=== PATIENT | female | born 1960 | race Caucasian/White ===

== ENCOUNTER 2018-09-04 07:21 | Day surgery (SDC) | payer OTHER ==
[2018-08-27 12:57] LABS: BASOPHILS % (AUTO) 0.3 % (0-1); EOSINOPHILS # (AUTO) 0.2 X10'3 (0-0.9); EOSINOPHILS % (AUTO) 2.5 % (0-6); LYMPHOCYTES % (AUTO) 30.1 % (21-51); MEAN CORPUSCULAR HEMOGLOBIN 29.7 PG (27.0-31.0); MEAN CORPUSCULAR HGB CONC 32.7 % (33.0-36.5); MEAN CORPUSCULAR VOLUME 90.8 FL (78-98); MEAN PLATELET VOLUME 7.8 FL (7.4-10.4); MONOCYTES # (AUTO) 0.4 X10'3 (0-0.9); MONOCYTES % (AUTO) 6.3 % (2-12); NEUTROPHILS # (AUTO) 4.2 X10'3 (1.8-7.7); NEUTROPHILS % (AUTO) 60.8 % (42-75); PRE OP HEMATOCRIT 43.5 % (35.0-45.0); PRE OP HEMOGLOBIN 14.2 g/dL (12.0-16.0); PRE OP PLATELET COUNT 319 X10'3 (140-440); RED BLOOD COUNT 4.79 X10'6 (4.20-5.60); RED CELL DISTRIBUTION WIDTH 13.2 % (11.5-14.5)
[2018-08-27 13:14] LABS: ALBUMIN 4.1 G/DL (3.4-5.0); ALBUMIN/GLOBULIN RATIO 1.1 (1.1-1.5); ALKALINE PHOSPHATASE 100 IU/L (46-116); BLOOD UREA NITROGEN 17 MG/DL (7-18); BUN/CREATININE RATIO 20.5 (6.6-38.0); CALCIUM 9.5 MG/DL (8.5-10.1); CHLORIDE 101 MMOL/L (99-107); CREATININE 0.83 MG/DL (0.40-0.90); PRE OP ALT 40 U/L (30-65); PRE OP ANION GAP 12 (8-16); PRE OP AST 21 U/L (10-37); PRE OP BILIRUB, TOTAL 0.4 MG/DL (0.0-1.0); PRE OP GLUCOSE 94 MG/DL (70-104); PRE OP POTASSIUM 4.2 MMOL/L (3.4-5.1); PRE OP SODIUM 140 MMOL/L (135-145); TOTAL CARBON DIOXIDE 26.6 MMOL/L (24-32); TOTAL PROTEIN 7.7 G/DL (6.4-8.2); eGFR 71 ML/MIN
[~2018-09-04] VITALS: Ht 167.6 cm; Wt 79.4 kg
[~2018-09-04 07:21] MED LIST: CRAN1TAB3 PO; FISH12002 PO; MAGN1TAB PO; MELA3TAB PO; MULT1TAB74 PO; NYQUIL PO; PANT-47 PO; VALA10002 PO; [UNRECOGNIZED DRUG - OTHER] PO; cefazolin/dext.iso 2gm/100 ML IV ONE; famotidine 20mg tablet PO ONE; ringers solution, lacted 1,000 ML IV SCH
[2018-09-04] MEDS ORDERED: LIDOcaine 0.5% (5mg/ml) 50ml vial ONE (08:25)
[2018-09-04] MEDS ORDERED: ringers solution, lacted 1,000 ML IV SCH (08:51)
[2018-09-04] MEDS ORDERED: proCHLORperazine 10 MG/2 ml inj IV PRN (08:55)
[2018-09-04] MEDS ORDERED: ondansetron/PF 4mg/2ml inj IV PRN (08:55)
[2018-09-04] MEDS ORDERED: morphine 4 MG/ML inj SYRINge IV PRN ×2 (08:55)
[2018-09-04] MEDS ORDERED: meperidine/PF 25mg/ml syringe IV PRN ×3 (08:55)
[2018-09-04] MEDS ORDERED: fentaNYL/PF 50MCG/1 ML 2ML syringe ONE (09:32)
[2018-09-04] MEDS ORDERED: midazolam 2 mg/2 ml injection ONE ×2 (09:33→10:50)
[2018-09-04 10:00] VITALS: BP 124/83
[2018-09-04] MEDS ORDERED: BUPIVAcaine/PF 2.5mg/ml (0.25%) 10ml vial ONE (10:09)
[2018-09-04] MEDS ORDERED: hydrALAZINE 20mg/ml inj. IV ONE (11:05)
[2018-09-04] MEDS ORDERED: propofol inj 20 ML IV ONE (11:05)
[2018-09-04 11:16] VITALS: BP 138/83
--- NOTE | 2018-09-04 11:16 | NUR ---
Received from OR via [facility] , accompanied by Anesthesiologist CRISSY and report given by Anesthesiolgist. PATIENT WITH 20G PIV IN LEFT AC RUNNING LR AT 100. MOSESIES ARIANA AT THIS TIME.RIGHT WRIST AND ELBOW IN BILLY BANDAGES THAT ARE CDI . Addendum: 09/04/18 at 1133 by Leonel Ayala RN, RN Amended: Links added.
[2018-09-04 11:26] VITALS: BP 131/80
[2018-09-04 11:36] VITALS: BP 138/77
--- NOTE | 2018-09-04 11:46 | NUR ---
ALL DC CRITERIA HAS BEEN MET. IV OUT WITHOUT ISSUE OR COMPLICATION. DENIES PAIN. SPOUSE PRESENT FOR DC PAPERWORK. ALL QUESTIONS ANSWERED, SPOUSE ASSISTED PATIENT IN GETTING DRESSED, OUT VIA WHEELCHAIR TO PERSONAL VEHICLE WHERE HE DROVE HER HOME. ALL DC CRITERIA HAS BEEN MET AND DRESSING IS CDI. VOIDED AND AMBULATED PRIOR TO LEAVING. Addendum: 09/04/18 at 1151 by Leonel Ayala RN, RN Amended: Links added.
== END 2018-09-04 11:46 | disposition home or self-care (01) ==
LOC: PAS 07:21
PROVIDERS: ATTEND Orthopaedic Surgery Hand Surgery
DX: G56.01 Carpal tunnel syndrome, right upper limb (principal); G56.21 Lesion of ulnar nerve, right upper limb; K21.9 Gastro-esophageal reflux disease without esophagitis; M19.90 Unspecified osteoarthritis, unspecified site; Z88.8 Allergy status to other drugs, medicaments and biological substances; Z79.899 Other long term (current) drug therapy; Z90.710 Acquired absence of both cervix and uterus; Z98.890 Other specified postprocedural states
CPT/HCPCS: 29848; 36415; 64718; 80053; 82948; 85025; A6449; J0360; J0690; J2001; J2250; J2704; J3010; J3490; A4615; A7000; J7120

== ENCOUNTER 2022-07-16 12:12 | Day surgery (SDC) | payer OTHER ==
[2022-07-16] VITALS (8 sets, daily range): BP systolic 142–169; BP diastolic 64–97
[~2022-07-16] VITALS: Ht 167.6 cm; Wt 74.5 kg
[~2022-07-16 12:12] MED LIST changes: -MELA3TAB PO; +MELA3TAB39 PO; +MULT-620 PO; -MULT1TAB74 PO; -cefazolin/dext.iso 2gm/100 ML IV ONE; -famotidine 20mg tablet PO ONE; -ringers solution, lacted 1,000 ML IV SCH
[2022-07-16] MEDS ORDERED: diphenhydrAMINE 25mg capsule PO PRN (12:35)
[2022-07-16] MEDS ORDERED: LORazepam 0.5 MG tablet PO PRN (12:35)
[2022-07-16] MEDS ORDERED: normal saline 1,000 ML IV SCH (12:35)
[2022-07-16] MEDS ORDERED: GABA300T25 PO (12:43)
[2022-07-16] MEDS ORDERED: HYDR50TA65 PO (12:43)
[2022-07-16] MEDS ORDERED: SEMA0.25 SQ (12:43)
[2022-07-16] MEDS ORDERED: METF-1203 PO (12:43)
[2022-07-16] MEDS ORDERED: LOSA25TA41 PO (12:43)
[2022-07-16] MEDS ORDERED: FEXO180T94 PO (12:44)
[2022-07-16 13:21] LABS: BASOPHILS % (AUTO) 0.4 % (0-1); EOSINOPHILS # (AUTO) 0.2 X10'3 (0-0.9); EOSINOPHILS % (AUTO) 3.2 % (0-6); HEMATOCRIT 41.3 % (35.0-45.0); HEMOGLOBIN 13.7 g/dl (12.0-16.0); LYMPHOCYTES # (AUTO) 1.8 X10'3 (1.1-4.8); LYMPHOCYTES % (AUTO) 26.2 % (21-51); MEAN CORPUSCULAR HEMOGLOBIN 29.7 PG (27.0-31.0); MEAN CORPUSCULAR HGB CONC 33.2 g/dL (33.0-36.5); MEAN CORPUSCULAR VOLUME 89.5 FL (78-98); MEAN PLATELET VOLUME 7.8 FL (7.4-10.4); MONOCYTES # (AUTO) 0.4 X10'3 (0-0.9); MONOCYTES % (AUTO) 6.5 % (2-12); NEUTROPHILS # (AUTO) 4.4 X10'3 (1.8-7.7); NEUTROPHILS % (AUTO) 63.7 % (42-75); PLATELET COUNT 242 X10'3 (140-440); RED BLOOD COUNT 4.61 X10'6 (4.20-5.60); RED CELL DISTRIBUTION WIDTH 13.6 % (11.5-14.5); WHITE BLOOD COUNT 6.9 X10'3 (4.5-11.0)
[2022-07-16] MEDS ORDERED: verapamil 2.5 mg/ml inj IV ONE (14:47)
[2022-07-16] MEDS ORDERED: midazolam 1 mg/ML 2ml injection ONE (14:47)
[2022-07-16] MEDS ORDERED: nitroGLYCERIN-Tridil 50MG/D5W 250 ML IV ONE (14:47)
[2022-07-16] MEDS ORDERED: fentaNYL/PF 50MCG/1 ML 2ML syringe ONE (14:47)
[2022-07-16] MEDS ORDERED: iohexol 350MG/ML 100ml bottle IV ONE (14:48)
[2022-07-16] MEDS ORDERED: LIDOcaine 1% (10mg/ml) 2ml vial ONE (14:48)
[2022-07-16] MEDS ORDERED: heparin 1,000unit/ml 10ml vial 10 ML ONE (14:48)
[2022-07-16] MEDS ORDERED: clopidogrel 300mg tablet ONE (16:51)
[2022-07-16] MEDS ORDERED: aspirin 325mg tablet ONE (16:51)
--- NOTE | 2022-07-16 18:26 | NUR ---
Pt given 3 day supply of Clopidrogril with instructions, pt verbalizes understanding. Pt handed new RX for ASA, Atorvastatin, and Clopidogril with instructions to have it filled [facility].
== END 2022-07-16 19:30 | disposition home or self-care (01) ==
LOC: SSTAY O 12:12
PROVIDERS: ATTEND Student in an Organized Health Care Education/Training Program
DX: I25.10 Atherosclerotic heart disease of native coronary artery without angina pectoris (principal); E11.9 Type 2 diabetes mellitus without complications; I70.209 Unspecified atherosclerosis of native arteries of extremities, unspecified extremity; I10 Essential (primary) hypertension; E78.5 Hyperlipidemia, unspecified; K21.9 Gastro-esophageal reflux disease without esophagitis; Z87.442 Personal history of urinary calculi; Z87.891 Personal history of nicotine dependence; Z79.899 Other long term (current) drug therapy; Z79.84 Long term (current) use of oral hypoglycemic drugs; Z82.49 Family history of ischemic heart disease and other diseases of the circulatory system; Z98.890 Other specified postprocedural states
CPT/HCPCS: 36415; 82948; 85025; 93005; 93458; A6258; C1725; C1751; C1769; C1874; C1894; C9600; J1644; J2250; J3010; J3490; J7030; Q0163; Q9967; A6402

== ENCOUNTER 2025-06-27 09:10 | Emergency (ER) | payer OTHER ==
[~2025-06-27] VITALS: Ht 167.6 cm; Wt 79.7 kg
[~2025-06-27 09:10] MED LIST changes: -CRAN1TAB3 PO; +FEXO180T94 PO; +GABA300T25 PO; +HYDR50TA65 PO; +LOSA25TA41 PO; -MAGN1TAB PO; -MELA3TAB39 PO; +METF-1203 PO; -NYQUIL PO; +SEMA0.25 SQ; -[UNRECOGNIZED DRUG - OTHER] PO
[2025-06-27 09:16] VITALS: TEMP 97.2
--- NOTE | 2025-06-27 09:18 | ELECTROCARDIOGRAPH REPORT ---
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 CATHY Wellington Measurements Intervals Mills Rate: 74 P: 75 AR: 172 QRS: 4 QRSD: 83 T: 29 QT: 403 QTc: 448 Interpretive Statements Sinus rhythm Low voltage, precordial leads Electronically Signed On 06-29-2025 19:23:[address] CATHY Wellington Please click the below link to view image of tracing.
[2025-06-27 09:35] LABS: MEAN PLATELET VOLUME 7.7 FL (7.4-10.4); RED CELL DISTRIBUTION WIDTH 14.7 % (11.5-14.5)
[2025-06-27] MEDS ORDERED: PHEN37.58 PO (09:39)
[2025-06-27] MEDS ORDERED: ASPI-1265 PO (09:39)
[2025-06-27] MEDS ORDERED: RANO500T6 PO (09:40)
[2025-06-27] MEDS ORDERED: GABA-535 PO (09:41)
[2025-06-27] MEDS ORDERED: VITA-268 PO (09:41)
--- NOTE | 2025-06-27 09:42 | RADIOLOGY REPORT ---
CHEST RADIOGRAPH Indication: CP Technique: Single frontal view of the chest was obtained Comparison: None FINDINGS: Lines and Tubes: None Lungs: No focal consolidation. Pleura: No effusion. No pneumothorax. Cardiomediastinal contours: Unremarkable Bones: No acute osseous abnormality. IMPRESSION: No acute cardiopulmonary disease.
--- NOTE | 2025-06-27 09:48 | Physician Documentation ---
History of Present Illness ~ Chief Complaint: Chest Pain Stated Complaint: CHEST PAIN Time Seen by MD: 09:28 Mode of Arrival: POV, Ambulatory HPI CAD s/p PCI RCA 2021, htn, severe gerd, p/w chest wall pain. Symptoms are non exertional. Began yesterday afternoon. Worsened with sleeping on her left side. Also with left shoulder and neck pain. No sob. Symptoms are static. Worsened with deep breathing. no cough. No hemoptysis. No fainting. no abdominal pain. No h/o VTE currently on ASA for CAD. 1. Obstructive CAD involving the distal RCA. 2. PCI of distal RCA with overlapping 3.0x16mm and 3.0x8mm Promus Elite ASHA. 3. RRA Access, closed with VascBand Medication Reconciliation Allergies: Coded Allergies: No Known Allergies (Unverified , 06/27/25) Scheduled Aspirin (Aspirin), 1 TAB PO DAILY, (Reported) Gabapentin (Gabapentin), 1 CAP PO DAILY, (Reported) Losartan Potassium (Losartan Potassium), 1 TAB PO DAILY, (Reported) Metformin HCl (Metformin HCl), 1 TAB PO DAILY, (Reported) Multivitamins (Multivitamins), 1 TAB PO DAILY, (Reported) Pantoprazole Sodium (PROTONIX tablet), 1 TAB PO DAILY, (Reported) Phentermine HCl (Phentermine HCl), 30 TAB PO QAM, (Reported) Ranolazine (Ranolazine ER), 1 TAB PO Q12H, (Reported) Valacyclovir HCl (Valtrex), 1 TAB PO DAILY, (Reported) Vitamin B Complex (B Complex), 1 TAB PO DAILY, (Reported) Discontinued Medications Fexofenadine* (Nancy*), 1 TAB PO DAILY, (Reported) Discontinued Reason: wrong med Fish Oil/Borage/Flax/Om3,6,9#1 ([place] 3-6-9 1,200 mg Softgel), 1 CAP PO Q12H, (Reported) Discontinued Reason: patient no longer taking Gabapentin (Gralise), 1 TAB PO DAILY, (Reported) Discontinued Reason: patient no longer taking Hydroxyzine HCl (Hydroxyzine HCl), 1 TAB PO HS, (Reported) Discontinued Reason: patient no longer taking Semaglutide (Ozempic), SQ, (Reported) Discontinued Reason: patient no longer taking Review of Systems All Other Systems at this time: Reviewed and Negative Constitutional: Denies: fever Physical Exam Vital Signs: Temperature: 97.2, Source: Temporal, Heart Rate: 76, Respiratory Rate: 18, BP: 193/105, Pulse Oximetry: 98, Weight: 79.700 Oxygen Flow Rate: 0 Physical Exam well appearing no distress moist mucous membranes no jvd lungs ctab breathing comfortably cardiac no murmur abdomen soft non tender skin warm well perfused. chest wall: reproducible left chest wall tenderness. Progress Results/Orders Results/Orders Orders - CAMPBELL QUIROZ MD Chest,Single View (06/27/25 09:13) Monitor (06/27/25 09:13) Saline Lock (06/27/25 09:13) Oxygen (06/27/25 09:13) Completed Orders - CMAPBELL QUIROZ MD Chest,Single View (06/27/25 09:13) Cbc/Diff (06/27/25 09:13) BMP (06/27/25 09:13) PBNP (06/27/25 09:13) Electrocardiogram (06/27/25 09:13) Hs Troponin I W Calculations (06/27/25 09:13) Hs Troponin I W Calculations (06/27/25 11:13) Ketorolac Trometh 15mg/Ml Vial (Toradol (06/27/25 11:45) Labetalol Inj. (Trandate 20 Mg/4ml Syrin (06/27/25 12:00) Vital Signs 06/27/25 06/27/25 06/27/25 09:16 09:33 12:04 Temp 97.2 Pulse 76 73 Resp 18 14 B/P (MAP) 193/105 168/91 (116) Pulse Ox 98 98 O2 Flow Rate 0 Laboratory Tests Test 06/27/25 09:21 06/27/25 11:14 White Blood Count 6.7 Red Blood Count 4.77 Hemoglobin 13.8 Hematocrit 41.5 Mean Corpuscular Volume 86.8 Mean Corpuscular Hemoglobin 28.9 Mean Corpuscular Hemoglobin Concent 33.2 Red Cell Distribution Width 14.7 H Platelet Count 278 Mean Platelet Volume 7.7 Neutrophils (%) (Auto) 68.2 Lymphocytes (%) (Auto) 21.9 Monocytes (%) (Auto) 5.6 Eosinophils (%) (Auto) 3.8 Basophils (%) (Auto) 0.5 Neutrophils # (Auto) 4.6 Lymphocytes # (Auto) 1.5 Monocytes # (Auto) 0.4 Eosinophils # (Auto) 0.3 Basophils # (Auto) 0.0 CBC Comment Sodium Level 138 Potassium Level 4.2 Chloride Level 104 Carbon Dioxide Level 27.0 Anion Gap 7 L Blood Urea Nitrogen 9 Creatinine 0.71 Estimated GFR/1.73 m2 83 BUN/Creatinine Ratio 12.7 Glucose Level 175 H Calcium Level 8.9 Troponin I High Sensitivity 5 6 Pro-B-Type Natriuretic Peptide 31 Albumin 4.1 Chemistry Comments Troponin I High Sens Percent Delta 20 Troponin I Hi Sens Absolute Change 1 EKG/XRAY/CT/US/VASC/MRI EKG : Additional Comment EKG independently interpreted by myself time 0916 indication chest wall pain. NSR rate 74 normal axis, normal intervals. No st or t wave abnormalities. Heart Score: Heart Score Response (Comments) Value History Slightly Suspicious 0 EKG Normal 0 Age 45-64 1 Risk Factors >3 or Hx ASHD 2 Troponin Normal limit 0 Total 3 Medical Decision Making Additional information obtaine: old records (cath report Jun 2022) Findings 65 yof h/o cad s/p PCI, htn, gerd p/w left chest wall and shoulder pain since yesterday. Non exertional. No SOB. Vitals reassuring aside for mild hypertension which resolved spontaneously. EKG reassuring. troponins wnl. Already followed by cardiology and has upcoming appointment with her pcp. Advised bp journal and return for worsening symptoms. Heart Score: 3 Differential Dx:Considerations: Include: angina, aortic dissection, chest wall pain, cholelithiasis, CHF, other (cad) Departure Disposition: HOME / SELF CARE / HOMELESS Impression: Primary Impression: Chest wall pain Additional Instructions: Please try taking an anti inflammatory such as motrin or naproxen for the next few days. If your symptoms worsen or you develop shortness of breath or fever return to the ER. Return also if you do not have any improvement with treatment after one week. Otherwise start a blood pressure log, take your readings at the same time daily and report to your PCP. Referrals: NO PRIMARY CARE PROVIDER (PCP) Signature Scribe Signature: na Attestation: CAMPBELL Juarez MD Jun 27, 2025 09:48
[2025-06-27 10:03] LABS: CREATININE 0.71 MG/DL (0.40-0.90); PRO BRAIN NATRIURETIC PEPTIDE 31 PG/ML (0-125); TOTAL CARBON DIOXIDE 27.0 MMOL/L (24-32); eCRCL 76 ML/MIN; eGFR 83 ML/MIN
[2025-06-27] MEDS: ketorolac trometh 15mg/ml vial 15 MG/ML ML IV ONE (12:16)
[2025-06-27] MEDS: labetalol 20mg/4ml (5mg/ml) syringe IV ONE (12:17)
[2025-06-27 12:54] VITALS: BP 159/82; PULSE 74; RESP 16; O2SAT 98
== END 2025-06-27 12:55 | disposition home or self-care (01) ==
LOC: ER 09:11
DX: R07.89 Other chest pain (principal); I10 Essential (primary) hypertension; I25.10 Atherosclerotic heart disease of native coronary artery without angina pectoris; Z95.5 Presence of coronary angioplasty implant and graft; Z79.82 Long term (current) use of aspirin; Z79.899 Other long term (current) drug therapy
CPT/HCPCS: 36415; 71045; 80048; 83880; 84484; 85025; 93005; 99285